=== PATIENT | male | born 1970 | race Caucasian/White ===

== ENCOUNTER 2018-08-20 15:50 | Inpatient (IN) | payer BC ==
[~2018-08-20] VITALS: Ht 180.3 cm; Wt 115.0 kg
[2018-09-16] VITALS (12 sets, daily range): BP systolic 127–149; BP diastolic 67–89; PULSE 61–76; TEMP 97.5–99
[2018-09-16 06:17] LABS: HEMATOCRIT 47.2 % (42.0-52.0); HEMOGLOBIN 16.1 g/dl (13.5-18.0)
[2018-09-16] MEDS ORDERED: TYLENOL PM EXTR1 TA1 PO (06:21)
--- NOTE | 2018-09-16 06:31 | NUR ---
48 year old male admitted to room 8 ambulatory and is alert and oriented x3. Voiced understanding of surgery and consent signed. Spouse in room and call light in reach. Siderails up x2 and IV fluids infusing.
--- NOTE | 2018-09-16 11:30 | NUR ---
Patient up from OR. Drowsy but arouses to voice. Lap sites x 6 with edges well approximated. Dar drain to bulb suction with bloody drainage noted. Darling to dependent drainage with clear yellow urine present in bag. Spouse at bedside. Post op VSS. Fluids infusing via gravity to right hand. Shift assessment complete. SCDs to BLE. Denies further needs at this time.
--- NOTE | 2018-09-16 18:53 | NUR ---
Patient has requested pain medications for pressure to abdomen 09/27, medications given per orders. Patient dangled at edge of bed this afternoon. When assisting patient to sit up patient stated nausea, was diaphoretic and stated tingling throughout body. States he has felt like this before when he has fainted. VSS, checked BS within normal limits. Cool wash rag applied to forhead then patient stated he felt better. Has been belching denies passing gas. Darling maintained to dependent drainage with clear yellow urine present in bag. Dar drain maintained to bulb compression with bloody drainage present. Was ambulate approximately 5 feet to head of bed. States pain when up out of bed. Educated patient on splinting inscision site. Denies further needs at this time. Reported off to shift supervisor film processing
--- NOTE | 2018-09-16 20:00 | NUR ---
REPORT RECEIVED. 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 ASSESSMENT COMPLETE. VS STABLE. A&OX3, IV TO R HAND INFUSING LR@125ML/HR. FAMILY AT BEDSIDE. C/O PAIN IN ABDOMEN. DESCRIBES SHARP INTERMITTENT JABS WITH CONSTANT ACHE. TEACHING COMPLETE ON GAS PAINS. WE DID ATTEMPT TO AMBULATE AT THIS TIME. SAT ON SIDE OF BED AND STOOD FOR APPROX 3 MINUTES. BECAME HOT, NAUSEAS AND DIAPHORETIC. SAT BACK ON SIDE OF BED-HAD SOME BELCHING-VOMITED APPROX 400MLS OF CLEAR FLUID. ZOFRAN GIVEN IV PER DR ORDER. REMAINS SITTING ON EDGE OF BED. WILL MONITOR.
--- NOTE | 2018-09-16 21:30 | NUR ---
STATES NAUSEA IS BETTER. DID HAVE MORE BELCHING. DID AMBULATE A VERY SHORT DISTANCE FROM BED TO DOOR-STARTED TO GET LIGHTHEADED AND NAUSEAS-SAT ON SIDE OF BED FOR APPROX 20 MINUTES. STATES THE PAIN IS NOW 3/10 BUT HAS MOVED LOWER. STATES HE THINKS ITS MOVING THE SHARP PAIN IS SOMEWHAT BETTER. ASSISTED BACK TO BED. SCDS ON. WILL MONITOR.
--- NOTE | 2018-09-16 23:00 | NUR ---
C/O PAIN IN RIGHT SIDE-RATING 7/10. STILL C/O BEING NAUSEAS. HAS HAD NO EMESIS SINCE LAST EPISODE. DISCUSSED PAIN MEDICATION OPTIONS WITH SPOUSE WELL-REQUESTING IV PAIN MEDICATIONS DUE TO N/V. MORPHINE GIVEN PER DR ORDER. WILL MONITOR.
[2018-09-17] VITALS (7 sets, daily range): BP systolic 114–139; BP diastolic 57–81; PULSE 67–80; TEMP 97.4–99.1
--- NOTE | 2018-09-17 05:56 | NUR ---
HAS RESTED WELL THE REST OF THIS SHIFT. NO PAIN MEDS GIVEN AFTER LAST DOSE OF MORPHINE AT 2300. STATES INCREASE IN PAIN WITH MOVEMENT BUT STATES ITS MANAGEABLE-DENIES NEED FOR PAIN MEDICATIONS. DID REFUSE 0600 DOSE OF TYLENOL UNTIL AFTER HE EATS. NO OTHER C/O AT THIS TIME. WILL MONITOR.
[2018-09-17 06:08] LABS: BASO % 0.1 % (0.0-2.0); GRAN # 8.8 (1.4-6.5); GRAN % 74.8 % (42.2-75.2); HEMATOCRIT 43.5 % (42.0-52.0); HEMOGLOBIN 14.9 g/dl (13.5-18.0); LYMPH # 1.6 (1.2-3.4); LYMPH % 13.8 % (20.0-51.0); MEAN CELL VOLUME 84 fl (80.0-100.0); MEAN CORPUSCULAR HEMOGLOBIN 29 pg (27.0-31.0); MEAN CORPUSCULAR HGB CONC 34 g/dl (33.0-37.0); MEAN PLATELET VOLUME 10.4 fl (7.4-10.4); MONO # 1.3 (0.1-0.6); PLATELET COUNT 195 K/mm3 (130-400); RED BLOOD COUNT 5.16 M/mm3 (4.20-5.60); REDCELL DISTRIBUTION WIDTH-CV 13.2 % (11.5-14.5)
[2018-09-17 06:17] LABS: CALCIUM 8.8 mg/dL (8.4-10.2); CREATININE, serum 1.02 (0.66-1.25); POTASSIUM 3.8 mmol/L (3.4-5.0)
--- NOTE | 2018-09-17 07:15 | NUR ---
REPORT TO STACY LEIVA
--- NOTE | 2018-09-17 10:16 | NUR ---
Patient up walking around in room. Patient denies nausea this am. He reports abdominal pain, he does not want to take po medications at this time, nervous about nausea. He denies passing flatus or belching. Patient bowels hypoactive. He is only drinking water-no other intrest in po intake at this time. Santos drain to compression, CR sent to lab. Abdominal lap site edges well approximated. Iv to int. Lisset Maria. WIll monitor closely.
--- NOTE | 2018-09-17 12:17 | NUR ---
First visit from the dragsaw operator. No needs right now.
--- NOTE | 2018-09-17 15:16 | NUR ---
Patient continues to refuse po pills, he even refused IV toradol, reports he does not need at this time. He tolerated applesauce and crackers for lunch. He is drinking more water. He has voided. He has increased his activity.
--- NOTE | 2018-09-17 15:25 | NUR ---
FRANK met with the patient and patient's family to discuss discharge plan. The patient lives in [place] with his , Zoë, and their children. He reports independence with ADLs and does not use any DME. The patient's PCP is Dr. Angel Sharpe and he receives his medications at [facility] in [place]. He reports no difficulties obtaining his meds. The patient does not have advanced directives and he was not interested in completing them at this time. The patient plans to return home with his family upon discharge. No additional needs at this time.
--- NOTE | 2018-09-17 17:32 | NUR ---
Patient up ambulating halls. He is going to order dinner. His family at bedside. He is voiding adequatelty. He continues to report abdominal cramping, no interest in taking any medication.
--- NOTE | 2018-09-17 18:04 | NUR ---
Patient refused drain removal at this time, will report to nightshift he wants to wait for removal.
--- NOTE | 2018-09-17 20:00 | NUR ---
REPORT RECEIVED. 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 VS STABLE. ASSESSMENT COMPLETE. 6 LAP SITES WELL APPROXIMATED-SURGICAL GLUE. BOWEL SOUNDS HYPOACTIVE. DENIES PASSING GAS. STATES PAIN IS BETTER TODAY COMPARED TO YESTERDAY. DID REFUSE PO MEDICATIONS AND IV TORADOL DOSE DUE AT 191. STATES HE AMBULATED PRIOR TO THIS SHIFT. ENCOURAGED TO AMBULATE AGAIN THIS SHIFT. VERBALIZES UNDERSTANDING. ENCOURAGED TO CALL FOR INCREASED PAIN-TORADOL IS THE ONLY PAIN MED CURRENTLY RECEIVING. VERBALIZES UNDERSTANDING. DENIES N/V-TOLERATED GENERAL DIET THIS AFTERNOON. VOIDING WITHOUT DIFFICULTY. DENIES NEEDS AT THIS TIME. WILL MONITOR.
--- NOTE | 2018-09-17 21:45 | NUR ---
CALLED ASKING FOR PAIN MEDICATIONS. STATES HE WILL TAKE THE TORADOL AT THIS TIME FOR PAIN RATED 8/10 IN ABDOMEN. DESCRIBED "SHARP BOWEL PAINS." DENIES PASSING GAS/BELCHING. BOWEL SOUNDS ARE HYPOACTIVE. SPOUSE WORRIED DUE TO C/O BEING HOT AND HEAD FEELING HOT. TEMP TAKEN-99.4 ORALLY. TEACHING DONE ON USE OF IS TO OPEN LUNGS UP. USED AT THIS TIME-TOLERATED WELL-INSTRUCTED TO USE EVERY HOUR X10 REPS WHILE AWAKE. VERBALIZES UNDERSTANDING. WILL RECHECK TEMP WITHIN HOUR. STILL REFUSING PO MEDICATION. PLAN OF CARE DISCUSSED FOR MARIAA DRAIN REMOVAL THIS SHIFT. REFUSING REMOVAL AT THIS TIME. WILL RE-ATTEMPT LATER THIS SHIFT. ENCOURAGED TO AMBULATE AFTER PAIN IS UNDER CONTROL. WILL CONTINUE TO MONITOR.
--- NOTE | 2018-09-17 22:40 | NUR ---
PAIN LEVEL DECREASED TO 2/57-[id number] ACHE NOW. ORAL TEMP 99.1. ENCOURAGED TO CONTINUE USE OF IS EVERY HOUR FOR TEN REPS WHILE AWAKE. VERBALIZES UNDERSTANDING. STILL REFUSING DRAIN REMOVAL. NO OTHER C/O AT THIS TIME BESIDE BEING TIRED. WILL CONTINUE TO MONITOR.
[2018-09-18 03:53] VITALS: BP 126/76; PULSE 77; TEMP 99.3
--- NOTE | 2018-09-18 04:48 | NUR ---
MARIAA DRAIN DCd AT THIS TIME. TOLERATED WELL. 2X2/TEGADERM DRESSING APPLIED. ENCOURAGED TO AMBULATE AND USE IS. STATES HE IS GOING TO GET UP TO BATHROOM THEN AMBULATE AND USE IS. DENIES NEEDS. SPOUSE AT BEDSIDE. WILL MONITOR.
--- NOTE | 2018-09-18 05:00 | NUR ---
UP AMBULATING IN HALLWAY WITH SPOUSE. TOLERATING WELL. STATES HE DID PASS SOME GAS THIS MORNING. DENIES NEEDS AT THIS TIME. WILL MONITOR.
[2018-09-18 07:28] VITALS: BP 121/84; PULSE 73; TEMP 98.7
--- NOTE | 2018-09-18 09:10 | NUR ---
PT WAS UP AMBULATING HALLWAYS EARLIER THIS AM. PT DENIES NEED FOR PAIN MEDS, DENIES PAIN. ATE 100 % OF MEAL. ABDOMINAL SITE ARE ALL CDI SIX SITES. DRAIN SITE IS PINKISH AND COVERED WITH TEGADERM. PT STATES HE IS HAVING GAS THIS AM. PT WANTS TO GO HOME. PRESENT. CALL LIGHT IN REACH.
[2018-09-18 11:33] VITALS: BP 120/81; PULSE 78; TEMP 98.9
--- NOTE | 2018-09-18 13:00 | NUR ---
PT GETTING DRESSED. GATHERED ALL PERSONAL BELONGINGS. WENT OVER DC INSTRUCTIONS WITH PT AND . ALL QUESTIONS ANSWERED. INT DC'D INTACT AND PRESSURE DRESSING APPLIED. PT/ INSTRUCTED TO CALL DR HARRELL'S OFFICE ON THURSDAY TO MAKE AN APPOINTMENT. PT TAKEN ON WHEELCHAIR TO [facility].
== END 2018-09-18 13:00 | disposition home or self-care (01) | DRG 658 ==
LOC: INPTSU 09-16 05:10 → SURG 09-16 05:10
PROVIDERS: Nurse Anesthetist, Certified Registered; ADMIT Urology
PROC: 8E0W4CZ Robotic Assisted Procedure of Trunk Region, Percutaneous Endoscopic Approach (ICD-10-PCS; 2018-09-16)
PROC: 0TB04ZZ Excision of Right Kidney, Percutaneous Endoscopic Approach (ICD-10-PCS; principal; 2018-09-16 07:30)
DX: C64.1 Malignant neoplasm of right kidney, except renal pelvis (principal); E66.9 Obesity, unspecified; Z68.35 Body mass index [BMI] 35.0-35.9, adult; Z88.8 Allergy status to other drugs, medicaments and biological substances
CPT/HCPCS: A4314; A9284; J0360; J0690; J1100; J1885; J2250; J2270; J2405; J2704; J2795; J3010; J7120